=== PATIENT | female | born 1965 | race Caucasian/White ===

== ENCOUNTER 2024-10-08 09:11 | Emergency (ER) | payer BC, SELFPAY ==
--- NOTE | 2024-10-08 09:24 | ED.GENADULT ---
HPI - General Adult General Chief complaint: Unspecified Stated complaint: high blood pressure/clamminess Time Seen by Provider: 10/08/24 09:23 Source: patient Mode of arrival: ambulatory Limitations: no limitations History of Present Illness HPI narrative: 59-year-old female with hx hypertension presented for complaint of sensation of high blood pressure despite taking losartan as prescribed. Onset 2 days. Endorses face feels warm, she feels like heart beat is 'heavier' when standing up, and feels nausea and clammy intermittently. Says she feels fine when laying down. Also says the day prior to onset she had a 'hiatal hernia flare' which is pain to the RUQ radiating around the right side to the back. Says this feels similar to her previous flares, and improves with Tylenol. Denies cp, palpitations, dizziness, vomiting or fatigue, numbness, tingling or weakness. Pt has not checked her bp since week about 5 days ago, because her home monitor stopped working. At that time BP was 130s/80s.Pt is former smoker, has been vaping x25 years. Related Data Home Medications ?Medication ?Instructions ?Recorded ?Confirmed ?Last Taken ?Type cholecalciferol (vit D3) 1,000 1 tablet PO DAILY 10/08/24 10/08/24 Unknown History unit-vitamin K2 (MK4) 100 mcg tablet losartan 25 mg tablet 25 mg PO DAILY 10/08/24 10/08/24 Unknown History Allergies Allergy/AdvReac Type Severity Reaction Status Date / Time Penicillins Allergy Mild Hives Verified 10/08/24 09:35 Review of Systems Review of Systems: CONSTITUTIONAL: Denies body aches, fever, reports chills, sweats. EYES: Denies visual changes, redness, or discharge. CARDIOVASCULAR: Reports palpitations Denies chest pain or edema. RESPIRATORY: Denies cough or dyspnea. GASTROINTESTINAL: Reports occasional nausea Denies abdominal pain, vomiting, or diarrhea. GENITOURINARY: Denies dysuria or hematuria. SKIN: Denies rash MUSCULOSKELETAL: Denies back pain, joint pain NEUROLOGIC: Denies headache, numbness, tingling, or weakness. PSYCH: Denies depression or anxiety. All systems reviewed & are unremarkable except as noted in HPI and below PMFSH Past Medical History Medical History (Updated 10/08/24 @ 10:15 by Tonya M. Kage, REGIONAL MAINTENANCE MANAGER) Hypertension Surgical History Surgical History (Updated 10/08/24 @ 10:11 by Tonya West APRN) Hx of cholecystectomy Social History Social History (Updated 10/08/24 @ 10:12 by Tonya West APRN) Smoking status: Former smoker Tobacco type: e-cigarettes/vaping Additional smoking assessment comments: quit cigarettes 1999, vape since Comments At time of signature, I have reviewed and agree with nursing past medical, surgical, social and family history unless otherwise noted. Please see nursing chart for further information. There is no relevant family history pertinent to the presenting complaint Exam Narrative: GENERAL: Well-appearing, well-nourished, and in no acute distress. EYES: EOMI. PERRLA, Conjunctivae normal. ENT: Mucous membranes pink and moist. NECK: Normal AROM. CHEST: Clear to auscultation. HEART: Regular rate and rhythm. No murmur appreciated. Normal peripheral pulses. ABDOMEN: Soft, nontender, nondistended, normal active bowel sounds. EXTREMITIES: Normal range of motion. No edema. SKIN: Warm, dry, no rash. Capillary refill normal. Normal skin turgor. NEURO: No focal deficits. Grimace intact, facial sensation intact. Normal shoulder shrug. Hand fur drummer strong and equal bilaterally. Alert and oriented x3. Gait steady. PSYCH: Normal affect. Course Course Emergency Course: Patient is aware of diagnosis, understands and agrees to treatment plan. Anticipatory guidance given. Patient agrees to follow-up as directed and is aware of reasons to seek care at the emergency department. Portions of this record may have been created with voice recognition software Level of Care: Express Care Visit Vital Signs Vital signs: Vital Signs Temperature 97.6 F 10/08/24 09:25 Pulse Rate 70 10/08/24 09:25 Respiratory Rate 18 10/08/24 09:25 Blood Pressure 154/89 H 10/08/24 09:25 Pulse Oximetry 98 10/08/24 09:25 Oxygen Delivery Room Air 10/08/24 09:25 Temperature 97.6 F 10/08/24 09:25 Pulse Rate 70 10/08/24 09:25 Respiratory Rate 18 10/08/24 09:25 Blood Pressure 154/89 H 10/08/24 09:25 Pulse Oximetry 98 10/08/24 09:25 Oxygen Delivery Room Air 10/08/24 09:25 Medical Decision Making MDM Narrative Medical decision making narrative: Pt presented feeling like her BP is high, nausa, clammy and palpitations. Discussed physical exam findings and EKG; NSR. BP 154/89. Discussed possible etiologies of pt's symptoms. Given pt's cardiac equivalent symptoms she is advised to go to the ER. [facility]. Differential Diagnosis Differential Diagnosis: STEMI, AAA, PE, pneumothorax, cardiac tamponade, esophageal rupture, pneumonia, GERD, musculoskeletal pain, endocarditis, pericarditis, URI, bronchitis, anxiety Vital Signs Vital Signs: Vital Signs Temperature 97.6 F 10/08/24 09:25 Pulse Rate 70 10/08/24 09:25 Respiratory Rate 18 10/08/24 09:25 Blood Pressure 154/89 H 10/08/24 09:25 Pulse Oximetry 98 10/08/24 09:25 Oxygen Delivery Room Air 10/08/24 09:25 Temperature 97.6 F 10/08/24 09:25 Pulse Rate 70 10/08/24 09:25 Respiratory Rate 18 10/08/24 09:25 Blood Pressure 154/89 H 10/08/24 09:25 Pulse Oximetry 98 10/08/24 09:25 Oxygen Delivery Room Air 10/08/24 09:25 reviewed Lab Data Labs: Lab Results 10/08/24 Range/Units 09:34 POC Capillary Glucose 121 H (65-105) mg/dl ECG Data EKG #1: Attestation: I personally reviewed and interpreted this ECG as follows: (NSR rate 81, MN 193, QRS 98, QT/QTC 409/446) ECG completion date: 10/08/24 ECG completion time: 09:32 Prior ECG tracings: not available for review EKG Interpretation: normal rate and sinus rhythm Discharge Plan Discharge Clinical Impression: Heart palpitations Patient Disposition: Acute Care Hospital Condition: Stable Patient Language: Mohawk Prescriptions: No Action losartan 25 mg tablet 25 mg PO DAILY vitamin D3-vitamin K2 (MK4) 1,000-100 unit-mcg tablet 1 tablet PO DAILY Follow-up/Referrals: PHYSICIAN,LOCKSTITCH WAISTLINE JOINER [Primary Care Provider, Internal Medicine] Time of Disposition: 10:14
[2024-10-08 09:25] VITALS: BP 154/89; PULSE 70; RESP 18; TEMP 36.4; O2SAT 98
--- NOTE | 2024-10-08 09:30 | ECG_ITS ---
Test Date: 2024-10-08 09:32:48 Measurements Intervals [place] Rate: 81 P: 52 NM: 193 QRS: -9 QRSD: 98 T: 40 QT: 409 QTc: 475 Interpretive Statements SINUS RHYTHM NORMAL ECG No previous ECG available for comparison Electronically Signed On 10-08-2024 09:54:19 CDT by Eran Zhang D.O.
== END 2024-10-08 10:08 | disposition short-term general hospital (02) ==
PROVIDERS: Emergency Provider Nurse Practitioner Family; Referring Provider Family Medicine
DX: R00.2 Palpitations (principal); F17.290 Nicotine dependence, other tobacco product, uncomplicated; I10 Essential (primary) hypertension
CPT/HCPCS: 82948; 93005; 99213; G0463

== ENCOUNTER 2024-10-08 10:36 | Emergency (ER) | payer BC, SELFPAY ==
--- NOTE | ~2024-10-08 | XR_ITS ---
EXAM/PROCEDURE: XR chest 2V - 10/08/2024 12:45 CDT HISTORY: 59 years old Female with palpatations NAUSEA INCREASED BP CLAMMY X SEVERAL DAYS TECHNIQUE: AP view(s) of the chest. COMPARISON: None available. FINDINGS: LUNGS/ PLEURA: No focal consolidation. No appreciable pneumothorax or large pleural effusion. HEART/ MEDIASTINUM: Heart appears normal in size. BONES: No acute osseous abnormality. OTHER: Visualized upper abdomen is unremarkable. IMPRESSION: No acute process. Reviewed, dictated and finalized at location A. IMPRESSION: No acute process.
[2024-10-08 10:36] VITALS: BP 156/86; PULSE 78; RESP 16; TEMP 36.6; O2SAT 99
[2024-10-08 11:40] VITALS: BP 141/105; PULSE 85; RESP 16; TEMP 36.2; O2SAT 97
--- NOTE | 2024-10-08 11:41 | ECG_ITS ---
Test Date: 2024-10-08 11:44:10 Measurements Intervals [place] Rate: 67 P: 41 MO: 195 QRS: -10 QRSD: 97 T: 28 QT: 433 QTc: 459 Interpretive Statements SINUS RHYTHM DELAYED PRECORDIAL R/S TRANSITION BORDERLINE T WAVE ABNORMALITY- ANTERIOR LEADS BORDERLINE ECG Compared to ECG 10/08/2024 09:32:48 No significant changes Electronically Signed On 10-08-2024 11:46:19 CDT by Eran Zhang D.O.
[2024-10-08 12:38] VITALS: BP 129/71; PULSE 79; RESP 19; O2SAT 98
[2024-10-08 12:58] VITALS: BP 174/90; PULSE 80; RESP 13; O2SAT 98
[2024-10-08 13:22] LABS: Alanine Aminotransferase 20 U/L (6-35); Albumin Level 4.8 g/dL (3.5-5.1); Alkaline Phosphatase 54 U/L (38-126); Anion Gap 12 mmol/L (4-12); Aspartate Amino Transferase 22 U/L (14-36); Bilirubin,Total 1.6 mg/dL (0.2-1.3); Blood Urea Nitrogen 10 mg/dL (7-17); Calcium 10.1 mg/dL (8.4-10.2); Carbon Dioxide 22 mmol/L (22-30); Chloride 101 mmol/L (98-107); Estimated CRCL calculation 77 ml/min; Estimated Glomerular Filt Rate > 60; Glucose 113 mg/dL (65-110); Lipase 38 U/L (23-300); Potassium 3.9 mmol/L (3.4-5.0); Sodium 135 mmol/L (137-145); Total Protein 8.0 g/dL (6.3-8.2)
[2024-10-08 13:30] VITALS: PULSE 76; RESP 12; O2SAT 97
[2024-10-08 13:33] LABS: Troponin I < 0.012 ng/mL (0.000-0.034)
[2024-10-08 13:35] LABS: Hematocrit 50.3 % (37.0-47.0); Hemoglobin 16.3 g/dL (12.0-15.0); Immature Granulocyte Percent A 0.3 % (0-0.5); Lymphocytes Absolute Auto 2.65 K/mm3 (0.9-3.2); Mean Corpuscular HGB Conc 32.4 g/dl (32-36); Mean Corpuscular Hemoglobin 27.6 pg (26-34); Mean Corpuscular Volume 85.3 fl (80-100); Nucleated Red Blood Cells Absolute Auto 0.000 K/mm3 (0.0-0.012); Nucleated Red Blood Cells Perc 0.0 % (0.0-0.2); Platelet Count Result 294 k/mm3 (150-375); Red Blood Count 5.90 M/mm3 (4.2-5.4); White Blood Count 10.2 K/mm3 (4.5-10.0)
[2024-10-08 13:52] LABS: INR 1.0; Partial Thromboplastin Time 30.3 Seconds (22.3-36.8); Prothrombin Time 13.1 Seconds (11.1-14.7)
--- NOTE | 2024-10-08 14:57 | ED_ITS ---
HPI - General Adult General Chief complaint: Recheck/Abnormal Lab/Rx Stated complaint: PALPATATIONS,NAUSEA Time Seen by Provider: 10/08/24 12:09 Source: patient Mode of arrival: ambulatory Limitations: no limitations History of Present Illness HPI narrative: 59-year-old with a history of hypertension presents to the ER with the complaints of not feeling well having chest discomfort on and off for past headache she also states that her blood pressure has been running high despite taking her medication. She presently denies having any headache or blurred vision. Onset (ago): day(s) (2) Severity: mild Relieving factors: none Exacerbating factors: none Associated symptoms: denies other symptoms Related Data Home Medications ?Medication ?Instructions ?Recorded ?Confirmed ?Last Taken ?Type cholecalciferol (vit D3) 1,000 1 tablet PO DAILY 10/0810/08/24 Unknown History unit-vitamin K2 (MK4) 100 mcg tablet losartan 25 mg tablet 25 mg PO DAILY 10/08/2409/20 Unknown History Allergies Allergy/AdvReac Type Severity Reaction Status Date / Time Penicillins Allergy Mild Hives Verified 10/08/24 10:36 Review of Systems 2 Review of Systems: All systems reviewed & are unremarkable except as noted in HPI and below Constitutional: Constitutional: Reports no additional constitutional complaints Eyes: Eyes: Reports no additional eye complaints ENT: Reports system reviewed and no additional complaints, except as documented Cardiovascular: Cardiovascular: Reports as per HPI Respiratory: Respiratory: Reports no additional respiratory complaints Gastrointestinal: Gastrointestinal: Reports no additional gastrointestinal complaints Musculoskeletal: Musculoskeletal: Reports no additional musculoskeletal complaints Integumentary/Breasts: Skin/Breast: Reports system reviewed and no additional complaints, except as docu PMFSH Past Medical History Medical History (Updated 10/08/24 @ 15:00 by Dewayne Obando MD) Hypertension Surgical History Surgical History Hx of cholecystectomy Social History Social History Smoking status: Former smoker Tobacco type: e-cigarettes/vaping Additional smoking assessment comments: quit cigarettes 1999, vape since Exam 2 Narrative: GENERAL: Well-appearing, well-nourished, and in no acute distress. HEAD: Normocephalic, atraumatic. EYES: PERRLA and EOMI. ENT: Nares clear, no rhinorrhea or epistaxis. Mucous membranes moist. NECK: Supple. CHEST: Clear to auscultation. No respiratory distress. HEART: Regular rate and rhythm. No murmur heard. Normal peripheral pulses. ABDOMEN: Soft, nontender, nondistended, normal active bowel sounds. EXTREMITIES: Normal range of motion. No edema. SKIN: Warm, dry, no rash. NEURO: No focal deficits. Alert and oriented x3. PSYCH: Normal mood and affect. Course Course Emergency Course: Patient was feeling much better. Her blood pressure gradually came down on its own I did inform her about the lab work. Patient states that she is under lot of stress at work and she feels comfortable going home. Advised her to follow with the primary doctor. Vital Signs Vital signs: Vital Signs Temperature 36.6 C 10/08/24 10:36 Pulse Rate 78 10/08/24 10:36 Respiratory Rate 16 10/08/24 10:36 Blood Pressure 156/86 H 10/08/24 10:36 Pulse Oximetry 99 10/08/24 10:36 Oxygen Delivery Room Air 10/08/24 10:36 Temperature 36.2 C L 10/08/24 11:40 Pulse Rate 79 10/08/24 12:38 Respiratory Rate 19 10/08/24 12:38 Blood Pressure 129/71 10/08/24 12:38 Pulse Oximetry 98 10/08/24 12:38 Oxygen Delivery Room Air 10/08/24 10:36 Medical Decision Making Medical Records Medical records reviewed: Yes I reviewed the external patient's medical records. Vital Signs Vital Signs: Vital Signs Temperature 36.6 C 10/08/24 10:36 Pulse Rate 78 10/08/24 10:36 Respiratory Rate 16 10/08/24 10:36 Blood Pressure 156/86 H 10/08/24 10:36 Pulse Oximetry 99 10/08/24 10:36 Oxygen Delivery Room Air 10/08/24 10:36 Temperature 36.2 C L 10/08/24 11:40 Pulse Rate 79 10/08/24 12:38 Respiratory Rate 19 10/08/24 12:38 Blood Pressure 129/71 10/08/24 12:38 Pulse Oximetry 98 10/08/24 12:38 Oxygen Delivery Room Air 10/08/24 10:36 Lab Data Lab results reviewed: Yes I reviewed the patient's lab results. 10/08/24 12:31 10/08/24 12:31 Labs: Lab Results 10/08/24 10/08/24 Range/Units 12:31 14:40 WBC 10.2 H (4.5-10.0) K/mm3 RBC 5.90 H (4.2-5.4) M/mm3 Hgb 16.3 H (12.0-15.0) g/dL Hct 50.3 H (37.0-47.0) % MCV 85.3 (80-100) fl MCH 27.6 (26-34) pg MCHC 32.4 (32-36) g/dl RDW 13.4 (11.5-14.5) % Plt Count 294 (150-375) k/mm3 MPV 10.0 (7.4-10.4) fl Immature Gran % (Auto) 0.3 (0-0.5) % Neut % (Auto) 66.9 (45.5-73.1) % Lymph % (Auto) 26.0 (18.3-44.2) % [place] % (Auto) 5.7 (2.6-8.5) % Eos % (Auto) 0.5 (0-4.4) % Baso % (Auto) 0.6 (0.2-1.2) % Lymph # (Auto) 2.65 (0.9-3.2) K/mm3 [place] # (Auto) 0.6 (0.1-0.6) K/mm3 Eos # (Auto) 0.1 (0-0.3) K/mm3 Baso # (Auto) 0.1 (0.0-0.1) K/mm3 Abs Immat Gran (auto) 0.03 (0.00-0.031) K/mm3 Absolute Neuts (auto) 6.8 H (1.3-6.7) K/mm3 Absolute Nucleated RBC 0.000 (0.0-0.012) K/mm3 Nucleated RBC % 0.0 (0.0-0.2) % PT 13.1 (11.1-14.7) Seconds INR 1.0 APTT 30.3 (22.3-36.8) Seconds Sodium 135 L (137-145) mmol/L Potassium 3.9 (3.4-5.0) mmol/L Chloride 101 (98-107) mmol/L Carbon Dioxide 22 (22-30) mmol/L Anion Gap 12 (4-12) mmol/L BUN 10 (7-17) mg/dL Creatinine 0.82 (0.7-1.0) mg/dL Estim Creat Clear Calc 77 ml/min Estimated GFR > 60 (59 - ) Glucose 113 H (65-110) mg/dL Calcium 10.1 (8.4-10.2) mg/dL Total Bilirubin 1.6 H (0.2-1.3) mg/dL AST 22 (14-36) U/L ALT 20 (6-35) U/L Alkaline Phosphatase 54 (38-126) U/L Troponin I < 0.012 Pending (0.000-0.034) ng/mL Total Protein 8.0 (6.3-8.2) g/dL Albumin 4.8 (3.5-5.1) g/dL Lipase 38 (23-300) U/L ECG Data EKG #1: ECG completion date: 10/08/24 ECG completion time: 11:44 EKG Interpretation: normal rate (67), no ectopy, normal QRS and NL axis Discharge Plan Discharge Clinical Impression: Chest pain, non-cardiac, Anxiety Patient Disposition: Home Condition: Stable Instructions: Noncardiac Chest Pain (ED), Anxiety (ED) Additional Instructions: Continue home medications , follow with your doctor . Patient Language: Slovenian Prescriptions: No Action losartan 25 mg tablet 25 mg PO DAILY vitamin D3-vitamin K2 (MK4) 1,000-100 unit-mcg tablet 1 tablet PO DAILY Follow-up/Referrals: Roney Dawn MD [Physician, Family Practice] PHYSICIAN,DIRECTOR LIFE SCIENCES [Primary Care Provider, Internal Medicine] Time of Disposition: 14:59
[2024-10-08 15:12] VITALS: BP 164/81; PULSE 80; RESP 20; O2SAT 97
[2024-10-08 15:12] LABS: Troponin I < 0.012 ng/mL (0.000-0.034)
== END 2024-10-08 15:14 | disposition home or self-care (01) ==
PROVIDERS: Emergency Medicine; Emergency Provider Family Medicine
DX: R07.89 Other chest pain (principal); F41.9 Anxiety disorder, unspecified; I10 Essential (primary) hypertension; F17.290 Nicotine dependence, other tobacco product, uncomplicated; Z90.49 Acquired absence of other specified parts of digestive tract
CPT/HCPCS: 36415; 71046; 80053; 82948; 83690; 84484; 85025; 85610; 85730; 93005; 99284